=== PATIENT | female | born 2000 ===

== ENCOUNTER 2021-06-11 22:31 | Emergency (ER) | payer SELFPAY ==
[2021-06-11 22:37] VITALS: BP 121/72
--- NOTE | 2021-06-11 23:23 | XRay Report ---
XR chest routine 2V INDICATION / CLINICAL INFORMATION: Chest Pain. COMPARISON: None available. FINDINGS: SUPPORT DEVICES: None. HEART /PULMONARY VASCULATURE: No significant abnormality. LUNGS / PLEURA: No significant pulmonary or pleural abnormality. No pneumothorax. ADDITIONAL FINDINGS: No significant additional findings. IMPRESSION: 1. No acute findings. Signer Name: Dandre Toth MD Signed: 06/11/2021 11:19 PM Workstation Name: [id number]
--- NOTE | 2021-06-11 23:29 | Emergency Department Report ---
ED General Adult HPI - General Chief complaint: Chest Pain Stated complaint: CHEST HEAVY Time Seen by Provider: 06/11/21 23:10 Source: patient Mode of arrival: Ambulatory Limitations: No Limitations - History of Present Illness Initial comments: CC: My chest is heavy. HPI: This is a 21-year-old female without significant past medical history who presents with chest heaviness especially at night. When laying flat, she feels as if someone sitting on her chest. She denies fever. She has mild shortness of breath she denies cough. She denies leg pain. Denies abdominal pain. Denies body aches. She does work in a warehouse. Unknown sick exposure. She is not vaccinated against COVID-19. Denies recent travel. Does not use oral contraceptives. -: Gradual, days(s) (2 days) Location: chest Severity scale (0 -10): 4 Quality: other (Heaviness when laying flat) Consistency: constant Improves with: other (Sitting upright) Worsens with: other (Laying flat) Associated Symptoms: shortness of breath - Related Data Allergies Allergy/AdvReac Type Severity Reaction Status Date / Time No Known Allergies Allergy Verified 06/11/21 22:39 ED Review of Systems ROS: Stated complaint: CHEST HEAVY Other details as noted in HPI Comment: All other systems reviewed and negative Constitutional: denies: chills, fever, malaise Respiratory: shortness of breath. denies: cough Cardiovascular: chest pain. denies: palpitations, edema, syncope Gastrointestinal: denies: abdominal pain, nausea, vomiting Musculoskeletal: denies: back pain ED Past Medical Hx - Past Medical History Previous Medical History?: No - Surgical History Past Surgical History?: No - Social History Smoking Status: Never Smoker Substance Use Type: None ED Physical Exam - General Limitations: No Limitations General appearance: alert, in no apparent distress, other (Well-appearing talk ing on phone during exam) - Head Head exam: Present: atraumatic, normocephalic - Eye Eye exam: Present: normal appearance - ENT ENT exam: Present: mucous membranes moist - Neck Neck exam: Present: normal inspection, full ROM - Respiratory Respiratory exam: Present: normal lung sounds bilaterally. Absent: respiratory distress, wheezes, rales, rhonchi, chest wall tenderness, accessory muscle use, decreased breath sounds, prolonged expiratory - Cardiovascular Cardiovascular Exam: Present: regular rate, normal rhythm. Absent: systolic murmur, diastolic murmur, rubs, gallop - GI/Abdominal GI/Abdominal exam: Present: soft, normal bowel sounds - Extremities Exam Extremities exam: Present: normal inspection - Back Exam Back exam: Present: normal inspection - Neurological Exam Neurological exam: Present: alert, oriented X3 - Psychiatric Psychiatric exam: Present: normal affect, normal mood - Skin Skin exam: Present: warm, dry, intact, normal color. Absent: rash ED Course Vital Signs 06/11/21 22:33 Temperature 98.1 F Pulse Rate 77 Respiratory 16 Rate Blood Pressure 121/72 [Left] O2 Sat by Pulse 100 Oximetry ED Medical Decision Making - EKG Data -: EKG Interpreted by Me EKG shows normal: sinus rhythm, axis, intervals, QRS complexes, ST-T waves Rate: normal - EKG Data Interpretation: normal EKG 06/11/21 23:17 EKG obtained 2246 EKG interpreted by me Normal EKG Rate 70 bpm normal axis normal intervals no ST-T sign ischemia no ST elevation - Radiology Data Radiology results: report reviewed Patient Name: HOLDEN MAGALLANES Gender: Female Date of : 2000 Home Phone: Referring Provider: ZAIDA MURPHY Organization: [facility] Accession Number: [id number] Requested Date: June 11, 2021 22:39 Report Status: Final Requested Procedure: 1 Procedure Description: XR chest routine 2V Modality: XR Findings Reporting MD: Dandre Toth Dictation Time: June 11, 2021 22:19 Technical Inspector: Not available Court Supervisor Date: XR chest routine 2V INDICATION / CLINICAL INFORMATION: Chest Pain. COMPARISON: None available. FINDINGS: SUPPORT DEVICES: None. HEART /PULMONARY VASCULATURE: No significant abnormality. LUNGS / PLEURA: No significant pulmonary or pleural abnormality. No pneumothorax. ADDITIONAL FINDINGS: No significant additional findings. IMPRESSION: 1. No acute findings. Signer Name: Dandre Toth MD Signed: 06/11/2021 10:19 PM Workstation Name: [id number] - Medical Decision Making 21-year-old female with chest pain, PERC negative. No indication of pericarditis. Chest radiograph negative for pneumothorax. Chest radiograph negative for pneumonia. Recommended Covid testing. Differential diagnosis includes costochondritis, GERD Critical care attestation.: If time is entered above; I have spent that time in minutes in the direct care of this critically ill patient, excluding procedure time. ED Disposition Clinical Impression: Suspected COVID-19 virus infection Disposition: HOME / SELF CARE / HOMELESS Is pt being admited?: No Does the pt Need Aspirin: No Condition: Stable Instructions: Nonspecific Chest Pain, Adult, [id number] Referrals: IVETTE BAH MD [Staff Physician] - 3-5 Days Forms: Work/School Release Form(ED)
--- NOTE | 2021-06-12 12:59 | Electrocardiograph Report ---
[facility] Test Date: 2021-06-11 Test Time: 22:46:20 Pat Name: HOLDEN MAGALLANES Department: Room: Gender: F Pricing Director: LAURIE : 2000 Requested By: ZAIDA MURPHY Order Number: [id number] Reading MD: Margaux Prater Measurements Intervals Rigby Rate: 73 P: 42 MI: 146 QRS: 88 QRSD: 98 T: 45 QT: 412 QTc: 454 Interpretive Statements Sinus rhythm Early repolarization ST changes No previous ECG available for comparison Electronically Signed On 06-12-2021 12:59:01 EST by Margaux Prater
== END 2021-06-12 00:52 | disposition home or self-care (01) ==
LOC: ED 22:31
DX: R06.02 Shortness of breath (principal); Z20.822 Contact with and (suspected) exposure to COVID-19
CPT/HCPCS: 71046; 93005; 99283